=== PATIENT | female | born 1990 | race Caucasian/White ===

== ENCOUNTER 2023-04-21 10:06 | Inpatient (IN) | payer BC ==
[2023-04-20 12:42] LABS: Hemoglobin 14.9 g/dL (12.0-15.5); Platelet Count 195 10x3/uL (150-450)
[2023-04-20 13:15] LABS: HBSAg Index 0.19 S/CO (0-0.99); Hep B Surf Ag Non-Reactive S/CO (NonReactive); Syphilis Antibody Nonreactive (Nonreactive); Syphilis Antibody Index 0.05 S/CO (<1.00 Non-Reactive)
[2023-04-21] MEDS ORDERED: Famotidine/PF 20 mg/2ml Vial SLOW IVP PRN (10:41)
[2023-04-21] MEDS ORDERED: Bicitra 30 ML UDCUP PO PRN (10:41)
[2023-04-21] MEDS ORDERED: Diphenoxylate HCl/Atropine Tablet PO PRN ×2 (10:41)
[2023-04-21] MEDS ORDERED: Misoprostol 200 MCG TAB PR PRN (10:41)
[2023-04-21] MEDS ORDERED: Ondansetron PF 4 MG/2 ML Vial IVP PRN ×3 (10:41→14:34)
[2023-04-21] MEDS ORDERED: Promethazine HCl 25 MG/ML VIAL IM PRN ×2 (10:41→14:34)
[2023-04-21] MEDS ORDERED: Carboprost 250 MCG/ML AMP IM PRN (10:41)
[2023-04-21] MEDS ORDERED: NS w/ Oxytocin 30 units 500 ML IV SCH (10:41)
[2023-04-21] MEDS ORDERED: hydrALAZINE 20 MG/ML VIAL SLOW IVP PRN ×2 (10:41→14:22)
[2023-04-21] MEDS ORDERED: CEFAZOLIN 2 GM in Sodium Chloride 0.9% 100 ML IVPB SCH (10:41)
[2023-04-21 11:24] VITALS: BMI 37.4
[2023-04-21] MEDS ORDERED: Morphine PF 10 MG/10 ML VIAL ONE (12:51)
[2023-04-21] MEDS ORDERED: Oxytocin 10 UNITS/ML VIAL ONE (12:54)
[2023-04-21] MEDS ORDERED: Dexamethasone 4 mg/ml Vial ONE (12:54)
[2023-04-21] MEDS ORDERED: Ketorolac Tromethamine 30 MG/ML VIAL ONE (12:54)
[2023-04-21] MEDS ORDERED: Ondansetron PF 4 MG/2 ML Vial ONE (12:54)
[2023-04-21] MEDS ORDERED: Sodium Chloride 0.9% 100 ML ONE (13:01)
[2023-04-21] MEDS ORDERED: CEFAZOLIN 2 GM VIAL ONE (13:01)
[2023-04-21] MEDS ORDERED: Lanolin Ointment 7 GM TUBE TOP PRN (14:22)
[2023-04-21] MEDS ORDERED: Boostrix 0.5 ML (Tdap) VIAL (>/=7 yrs of age) IM ONE (14:22)
[2023-04-21] MEDS ORDERED: Acetaminophen 325 MG TAB PO PRN (14:22)
[2023-04-21] MEDS ORDERED: Methylergonovine 0.2 MG/ML VIAL IM PRN (14:22)
[2023-04-21] MEDS ORDERED: HYDROcodone/Acetaminophen 5/325 mg Tablet PO PRN (14:22)
[2023-04-21] MEDS ORDERED: Ondansetron HCl/PF 4 MG/2 ML Vial IVP PRN (14:34)
[2023-04-21] MEDS ORDERED: Naloxone HCl 0.4 mg/ml Vial IV PRN (14:34)
[2023-04-21] MEDS ORDERED: diphenhydrAMINE 50 MG/ML VIAL IVP PRN (14:34)
[2023-04-21] MEDS ORDERED: Meperidine HCl/PF 25 MG/ML VIAL SLOW IVP PRN (14:34)
[2023-04-21] MEDS ORDERED: Promethazine HCl 25 MG SUPP PR PRN (14:34)
[2023-04-21] MEDS ORDERED: Fentanyl 100 MCG/2 ML VIAL SLOW IVP PRN (14:34)
[2023-04-21] MEDS ORDERED: Naloxone HCl 0.4 mg/ml Vial IVP PRN ×2 (14:34)
[2023-04-21] MEDS ORDERED: Moisturizing Cream (Eucerin) 113 GM JAR TOP PRN (14:34)
[2023-04-21] MEDS ORDERED: Ketorolac Tromethamine 30 MG/ML VIAL IVP SCH (14:45)
[2023-04-21] MEDS ORDERED: Communication Order-Pharmacy FS SCH (14:45)
[2023-04-21] MEDS: Ketorolac Tromethamine 30 MG/ML VIAL IVP PRN (22:41)
[2023-04-22 03:32] LABS: Hemoglobin 10.8 g/dL (12.0-15.5); Mean Corpuscular Hemoglobin 26.8 pg (27.0-33.0); Mean Corpuscular Volume 81.1 fl (81.6-98.3); Mean Platelet Volume 12.1 fl (7.4-10.4); Platelet Count 158 10x3/uL (150-450); RBC Distribution Width 13.3 % (11.5-14.5); Red Blood Cell (RBC) Count 4.03 10x6/uL (3.90-5.03); White Blood Cell (WBC) Count 10.3 10x3/uL (3.5-10.5)
[2023-04-22] MEDS: Lactated Ringer's 1,000 ML IV SCH ×2 (07:36→12:22)
[2023-04-22] MEDS: Docusate 100 MG CAP PO SCH ×3 (07:37→22:03)
[2023-04-22] MEDS: Ferrous Sulfate 325 MG TAB PO SCH ×3 (07:38→21:59)
[2023-04-22] MEDS: Ketorolac Tromethamine 30 MG/ML VIAL IVP PRN (08:14)
[2023-04-22] MEDS: Prenatal Vitamin 1 TAB PO SCH (08:15)
[2023-04-22] MEDS: HYDROcodone/Acetaminophen 5/325 mg Tablet PO PRN ×4 (08:15→20:28)
[2023-04-22] MEDS: Simethicone Chewable 80 MG TAB PO PRN ×3 (08:16→22:03)
[2023-04-22] MEDS: Ibuprofen 800 MG TAB PO SCH (22:03)
[2023-04-23] MEDS: Ibuprofen 800 MG TAB PO SCH ×2 (04:32→14:10)
[2023-04-23] MEDS: HYDROcodone/Acetaminophen 5/325 mg Tablet PO PRN ×3 (04:33→14:09)
[2023-04-23] MEDS: Lactated Ringer's 1,000 ML IV SCH ×3 (05:54→13:00)
[2023-04-23 08:49] VITALS: BP 132/78; TEMP 97.3
[2023-04-23] MEDS: Docusate 100 MG CAP PO SCH (09:16)
[2023-04-23] MEDS: Prenatal Vitamin 1 TAB PO SCH (09:16)
[2023-04-23] MEDS: Simethicone Chewable 80 MG TAB PO PRN (09:16)
[2023-04-23] MEDS: Ferrous Sulfate 325 MG TAB PO SCH (09:34)
== END 2023-04-23 16:20 | disposition home or self-care (01) | DRG 788 ==
LOC: CSHLD 10:06 → CSHPP 19:44
PROVIDERS: ADMIT Obstetrics & Gynecology; ATTEND Obstetrics & Gynecology
PROC: 10D00Z1 Extraction of Products of Conception, Low, Open Approach (ICD-10-PCS; principal; 2023-04-21)
PROC: 3E033VJ Introduction of Other Hormone into Peripheral Vein, Percutaneous Approach (ICD-10-PCS; 2023-04-21)
DX: O34.211 Maternal care for low transverse scar from previous cesarean delivery (principal); O24.429 Gestational diabetes mellitus in childbirth, unspecified control; Z3A.39 39 weeks gestation of pregnancy; Z37.0 Single live birth; Z90.49 Acquired absence of other specified parts of digestive tract; Z98.890 Other specified postprocedural states
CPT/HCPCS: 36415; 51702; 85014; 85018; 85027; 85049; 86780; 86850; 86900; 86901; 87340; J1100; J1885; J2274; J2405; J2590

== ENCOUNTER 2024-02-21 09:56 | Emergency (ER) | payer BC | END 2024-02-21 11:00 | disposition home or self-care (01) | LOC: CSHERS 09:56 | DX: S80.02XA Contusion of left knee, initial encounter (principal); W18.01XA Striking against sports equipment with subsequent fall, initial encounter; Y92.39 Other specified sports and athletic area as the place of occurrence of the external cause ==